=== PATIENT | male | born 1995 | race Caucasian/White ===

== ENCOUNTER 2024-02-07 15:57 | Emergency (ER) | payer OTHER ==
[~2024-02-07] VITALS: Ht 177.8 cm; Wt 79.4 kg
[2024-02-07 18:05] VITALS: BP 134/90
== END 2024-02-07 18:06 | disposition home or self-care (01) ==
LOC: ER 15:57
DX: S41.012A Laceration without foreign body of left shoulder, initial encounter (principal); V86.56XA Driver of dirt bike or motor/cross bike injured in nontraffic accident, initial encounter
CPT/HCPCS: 12001; 73000; 99283-25

== ENCOUNTER 2024-03-04 20:35 | Emergency (ER) | payer OTHER ==
[~2024-03-04] VITALS: Ht 177.8 cm; Wt 77.1 kg
[2024-03-04 22:25] VITALS: BP 130/84
== END 2024-03-04 22:26 | disposition home or self-care (01) ==
LOC: ER 20:35
DX: S42.018A Nondisplaced fracture of sternal end of left clavicle, initial encounter for closed fracture (principal); V86.96XA Unspecified occupant of dirt bike or motor/cross bike injured in nontraffic accident, initial encounter
CPT/HCPCS: 73000; 99283-25